=== PATIENT | male | born 1975 | race African-American/Black ===

== ENCOUNTER 2022-09-17 07:11 | Day surgery (SDC) | payer BC ==
[2022-09-15 14:14] VITALS: BMI 28.8
[2022-09-17] MEDS ORDERED: Lidocaine 1% PF 5 ML VIAL ONE (09:00)
[2022-09-17] MEDS ORDERED: PROPOFOL 20 ML ONE (09:00)
[2022-09-17] MEDS ORDERED: PROPOFOL 40 ML ONE (09:00)
== END 2022-09-17 10:02 | disposition home or self-care (01) ==
LOC: CSHSDC 07:11
PROVIDERS: ATTEND Surgery
PROC: 0DJD8ZZ Inspection of Lower Intestinal Tract, Via Natural or Artificial Opening Endoscopic (ICD-10-PCS; principal; 2022-09-17)
DX: D50.9 Iron deficiency anemia, unspecified (principal); N18.2 Chronic kidney disease, stage 2 (mild); Z79.899 Other long term (current) drug therapy
CPT/HCPCS: J2704